=== PATIENT | male | born 1955 | race Caucasian/White ===

== ENCOUNTER → 2017-03-28 | Outpatient (CLI) | payer BC ==
[~2017-03-28] MED LIST: ALPR1TAB3 PO; ASPI81TA21 PO; FISHOIL PO; LISI40TA PO; MULTTAB58 PO; TRAZ1TAB52 PO
[2017-03-28 16:24] LABS: ALT/SGPT 28 U/L (12-78); AST/SGOT 17 U/L (15-37); BLOOD UREA NITROGEN 17 mg/dl (7-18); CALCIUM 8.9 mg/dl (8.5-10.1); CARBON DIOXIDE 26 mmol/L (21-32); CHLORIDE 100 mmol/L (98-107); CHOLESTEROL 180 mg/dl (0-200); CREATININE 0.92 mg/dl (0.60-1.40); GLUCOSE 84 mg/dl (70-99); POTASSIUM 4.2 mmol/L (3.5-5.1); SODIUM 133 mmol/L (136-145)
[2017-03-28 16:26] LABS: ALB/GLOB RATIO 1.3 (0.9-2); ALKALINE PHOSPHATASE 45 U/L (45-117); HDL CHOLESTEROL 60 mg/dl; LDL CHOLESTEROL CALCULATED 113 mg/dl; TRIGLYCERIDES 35 mg/dl (0-150); VERY LOW DENSITY LIPOPROT CALC 7 mg/dl
[2017-03-28 16:40] LABS: ESTIMATED AVERAGE GLUCOSE 105 mg/dl; HA1C FLAG Normal (Normal)
== END | disposition home or self-care (01) ==
LOC: C.LAB 15:23
PROVIDERS: ATTEND Family Medicine
DX: I10 Essential (primary) hypertension (principal); R73.01 Impaired fasting glucose; E78.5 Hyperlipidemia, unspecified

== ENCOUNTER 2022-10-26 11:20 | Observation (INO) ==
[2022-10-26] MEDS ORDERED: SODIUM CHLORIDE 0.9% 1000ML 1,000 ML IV STA (11:38)
--- NOTE | 2022-10-26 11:38 | ED Triage Note ---
Date of Service October 26, 2022 History of Present Illness This patient was briefly evaluated while in triage. An abbreviated physical exam was performed. This patient is a 66-year-old Male who presents to the ED for evaluation of leg infections. The patient is currently taking Keflex, started on 10/14. The reports that is now starting to develop a bad smell with pus. The patient has been followed by his PCP for bilateral leg cellulitis. Patient denies any known history of MRSA. Patient is currently taking hydroxyzine for the itch, and reports that he cannot sleep because of the itch. He denies any significant pain. Physical Exam CONSTITUTIONAL: Obese male in no acute distress. HEENT: No scleral icterus or conjunctival injection. NECK: Full active range of motion without discomfort. RESPIRATORY: Clear to auscultation bilaterally with no wheezing, crackles, rhonchi or stridor. CARDIOVASCULAR: Regular rate and rhythm with no murmurs, rubs or gallops. MUSCULOSKELETAL: Examination of bilateral lower extremity shows significant avril a and erythema. The patient does have dressings on both legs, and these were not removed in triage. He does have erythema above and below the bandages on both legs. HEMATOLOGIC: No ecchymosis or petechiae. PSYCHIATRIC: Positive affect. NEUROLOGIC: No focal neurologic deficits noted. Initial orders for labs and / or imaging were placed and patient was placed in the waiting area until a bed is available. Please see further documentation for the full ED course.
--- NOTE | 2022-10-26 12:35 | Emergency Department Note ---
Impression & Plan Bilateral lower leg cellulitis, Venous stasis dermatitis of both lower extremities, Morbid obesity, Localized swelling of both lower legs ED Provider Note NAME: BALBINA ODOM AGE: 66 SEX: M : 1955 ARRIVES VIA: Walk-In INFORMANT: Patient, ED PROVIDER(S): Wilson Staton MD CHIEF COMPLAINT: Leg wounds, swelling, failed antibiotic treatmnt MEDICAL DECISION MAKING: Patient presents due to concern for leg swelling, leg wounds and cellulitis. IV was established blood was obtained along with cultures. Patient has a normal white count hemoglobin and platelet count. Kidney function is unremarkable. Sodium 134. Lactate of 2.4. BSG is 176 not DKA. COVID-negative. Wound swab was obtained of the left lower extremity I did speak with the on-call hospitalist service Samira Espinal PA-C and Dr. Mejias for further management given the patient's significant leg wounds and excoriations in addition to the recent treatment for cellulitis with Keflex. Prior /Outside records reviewed: Care visit with Dr. May earlier in October at which point the patient did receive Shingrix vaccination was started on hydrochlorothiazide given leg swelling. Differential diagnosis: Cellulitis, edema, abscess, MRSA infection, DVT, necrotizing fasciitis, dermatitis, drug eruption, allergic reaction, as well as other pathologies. Diagnostics, as interpreted by me: ECG: Sinus tachycardia, rate of 104 normal UT and QRS, prolonged QT. Cardiac monitoring: An order was placed for continuous cardiac monitoring. The monitor shows a rate of 88 with sinus rhythm. Patient was placed on pulse oximetry Medical decision rules: none Imaging studies: See below HPI: Patient presents due to concern for leg wound swelling and irritation. The patient was diagnosed with cellulitis and states that this began after he bumped his right leg on a half sock at home. Patient has been on Keflex 1500 mg daily schedule to 500 3 times daily for the last 12 days but without significant improvement in symptoms. They are concerned as he has had more open wounds that have been having some foul-smelling drainage. No fevers or chills. No reported history of smoking or diabetes. Patient states he has been taking medications as prescribed. Patient denies any other symptoms. He has been trying to dress the wounds and trying to clean them gently with just running water. PAST MEDICAL HISTORY: See Below PAST SURGICAL HISTORY: See Below SOCIAL HISTORY: See Below HOME MEDICATIONS: See Below ALLERGIES: See Below VITALS: See Below PHYSICAL EXAMINATION: GENERAL: NAD, wearing a mask, non-toxic. EYE EXAM: Normal conjunctiva. PERRL, no anisocoria and EOM's grossly intact w/o pain. NECK: Supple, no nuchal rigidity, no adenopathy, non-tender. No signs of meningismus. FROM of the neck with good chin to chest and neck extension. No stridor. LUNGS: Clear to auscultation. Normal chest wall mechanics. HEART: NSR, no MRG. ABDOMEN: Abdomen soft, non-tender, no masses, no rebound or guarding. BACK: No CVA TTP. SKIN: No rashes and no bruising. UPPER EXTREMITIES: Upper extremities are grossly normal. LOWER EXTREMITIES: Significant bilateral lower extremity edema with excoriations and open wounds noted, clear drainage, no crepitus, redness but without warmth, neurovascular intact distally. NEURO EXAM: A&O x3, cranial nerves II-XII grossly intact, normal speech, moves all 4 extremities. Past Med/Surg History Medical History Cerumen impaction Chronic sinusitis Facial cellulitis Surgical History History of hip replacement Hx of hernia repair Hx of knee surgery Family History Mother Aneurysm of abdominal aorta Other No pertinent family history in first degree relatives Denies family history of Prostate cancer Myocardial infarction Breast cancer Colorectal cancer Social History Smoking Status: Never smoker Second Hand Exposure: No; Do You Dip or Chew Tobacco: No; Hx Alcohol Use: Yes Alcohol type: beer Hx Substance Use: No Preferred Language: Khmer Communication Ability: Effective Inventory Checker Required: No Beliefs That Will Affect Care: None marital status: Current Living Situation: Spouse current occupational status: employed Feels Safe at Home: Yes caffeine: Yes Dental Care, Regularly: Yes Physical Activity Frequency: 1-2 Times per Week Seatbelt Use: always Sunscreen Use: No Assistive Devices: Crutches and Walker Allergies Allergies Allergy/AdvReac Type Severity Reaction Status Date / Time No Known Allergies Allergy Unknown Verified 10/14/22 12:33 Home Meds Home Medications Medication Instructions Recorded Confirmed cholecalciferol (vitamin D3) 125 5,000 unit PO DAILY 05/13/19 10/26/22 mcg (5,000 unit) capsule garlic 1,000 mg capsule 1,000 mg PO DAILY 05/13/19 10/26/22 multivitamin (Multiple Vitamins 1 tab PO DAILY 05/13/19 10/26/22 tablet) aspirin 81 mg tablet 81 mg PO DAILY 06/18/20 10/26/22 Previous Rx's Medication Instructions Recorded simvastatin 20 mg tablet 20 mg PO QPM #90 tabs 12/24/19 hydrochlorothiazide 12.5 mg tablet 12.5 mg PO QAM #30 tabs 05/02/22 metoprolol succinate 50 mg 50 mg PO DAILY #30 tabs 06/13/22 tablet,extended release 24 hr trazodone 150 mg tablet 300 mg PO DAILY #60 tabs 09/13/22 cephalexin 500 mg capsule 500 mg PO Q8H 14 days #42 caps 10/14/22 mupirocin 2 % topical ointment 1 applic topical BID PRN 10/14/22 cellulitis #22 grams hydroxyzine HCl 25 mg tablet 25 mg PO QID PRN itching #90 tabs 10/19/22 Results & Data (ED) Vital Signs Vital Signs - 24 hr 10/26/22 11:34 10/26/22 12:35 10/26/22 13:40 Temperature 36.6 C Temperature Source Temporal Artery Scan Pulse Rate 105 H Pulse Rate [Finger] 110 H 91 H Respiratory Rate 18 18 14 Respiratory Depth Normal Blood Pressure 219/78 H Blood Pressure [Right Arm] 175/90 H 190/96 H Blood Pressure Mean 125 Blood Pressure Mean [Right Arm] 118 127 Pulse Oximetry 95 97 98 Oxygen Delivery Method Room Air Room Air Room Air Sepsis Recent Fever Within 48 Hours No Sepsis New/Unexplained Change in Mental Status No Sepsis Action Taken by Nursing No Action Required Home Medications Current Medication List: was personally reviewed by me Laboratory Data Attestation: I reviewed the patient's lab results. 10/26/22 11:45 10/26/22 11:45 Lab Results 10/26/22 10/26/22 10/26/22 Range/Units 11:45 11:45 11:45 WBC 9.83 (4.8-10.8) K/ul RBC 4.67 L (4.70-6.10) M/uL Hgb 14.2 (14.0-18.0) g/dl Hct 41.4 L (42.0-52.0) % MCV 88.7 (80.0-100.0) fL MCH 30.4 (25.0-34.0) pg MCHC 34.3 (32.0-36.0) g/dL RDW Std Deviation 42.4 (36.4-46.3) fL RDW Coeff of Carmen 13.1 (11.5-14.5) % Plt Count 239 (130-400) K/uL MPV 8.8 L (9.4-12.4) fL Immature Gran % (Auto) 0.8 % Neut % (Auto) 82.4 % Lymph % (Auto) 10.7 % [place] % (Auto) 5.3 % Eos % (Auto) 0.6 % Baso % (Auto) 0.2 % Neut # (Auto) 8.10 H (1.40-6.50) K/uL Lymph # (Auto) 1.05 L (1.2-3.4) K/uL [place] # (Auto) 0.52 (0.11-0.59) K/uL Eos # (Auto) 0.06 (0-0.50) K/uL Baso # (Auto) 0.02 (0-0.2) K/uL Immature Gran # (Auto) 0.08 (0.01-0.20) K/uL ESR 46 H (0-20) mm/hr PT 10.6 (9.0-12.0) Seconds INR 1.0 (0.9-1.1) Sodium (136-145) mmol/L Potassium (3.5-5.1) mmol/L Chloride (98-107) mmol/L Carbon Dioxide (21-32) mmol/L Anion Gap (3-11) BUN (6-23) mg/dl Creatinine (0.6-1.4) mg/dl Est Cr Clr Drug Dosing ml/min Est GFR ( Amer) ml/min Est GFR (Non-Af Amer) ml/min BUN/Creatinine Ratio (10-20) Glucose (70-99(Fasting)) mg/dl Lactate (0.4-2.0) mmol/L Calcium (8.6-10.3) mg/dl Total Bilirubin (0.2-1.0) mg/dl AST (13-39) U/L ALT (7-52) U/L Alkaline Phosphatase (34-104) U/L Troponin I High Sens (0-20) pg/ml Total Protein (6.0-8.3) gm/dl Albumin (3.4-5.0) gm/dl Globulin (2.5-4.0) gm/dl Albumin/Globulin Ratio (0.9-2) Procalcitonin (0-0.5) ng/ml SARS-CoV-2, RNA, NAAT (NEGATIVE) 10/26/22 10/26/22 10/26/22 Range/Units 11:45 11:45 11:45 WBC (4.8-10.8) K/ul RBC (4.70-6.10) M/uL Hgb (14.0-18.0) g/dl Hct (42.0-52.0) % MCV (80.0-100.0) fL MCH (25.0-34.0) pg MCHC (32.0-36.0) g/dL RDW Std Deviation (36.4-46.3) fL RDW Coeff of Carmen (11.5-14.5) % Plt Count (130-400) K/uL MPV (9.4-12.4) fL Immature Gran % (Auto) % Neut % (Auto) % Lymph % (Auto) % [place] % (Auto) % Eos % (Auto) % Baso % (Auto) % Neut # (Auto) (1.40-6.50) K/uL Lymph # (Auto) (1.2-3.4) K/uL [place] # (Auto) (0.11-0.59) K/uL Eos # (Auto) (0-0.50) K/uL Baso # (Auto) (0-0.2) K/uL Immature Gran # (Auto) (0.01-0.20) K/uL ESR (0-20) mm/hr PT (9.0-12.0) Seconds INR (0.9-1.1) Sodium 134 L (136-145) mmol/L Potassium 3.8 (3.5-5.1) mmol/L Chloride 97 L (98-107) mmol/L Carbon Dioxide 27 (21-32) mmol/L Anion Gap 10 (3-11) BUN 16 (6-23) mg/dl Creatinine 1.12 (0.6-1.4) mg/dl Est Cr Clr Drug Dosing 101.7 ml/min Est GFR ( Amer) 80.0 ml/min Est GFR (Non-Af Amer) 69.0 ml/min BUN/Creatinine Ratio 14.3 (10-20) Glucose 176 H (70-99(Fasting)) mg/dl Lactate (0.4-2.0) mmol/L Calcium 9.2 (8.6-10.3) mg/dl Total Bilirubin 0.5 (0.2-1.0) mg/dl AST 24 (13-39) U/L ALT 30 (7-52) U/L Alkaline Phosphatase 58 (34-104) U/L Troponin I High Sens 9.3 (0-20) pg/ml Total Protein 7.2 (6.0-8.3) gm/dl Albumin 3.9 (3.4-5.0) gm/dl Globulin 3.3 (2.5-4.0) gm/dl Albumin/Globulin Ratio 1.2 (0.9-2) Procalcitonin < 0.05 (0-0.5) ng/ml SARS-CoV-2, RNA, NAAT NEGATIVE (NEGATIVE) 10/26/22 Range/Units 13:09 WBC (4.8-10.8) K/ul RBC (4.70-6.10) M/uL Hgb (14.0-18.0) g/dl Hct (42.0-52.0) % MCV (80.0-100.0) fL MCH (25.0-34.0) pg MCHC (32.0-36.0) g/dL RDW Std Deviation (36.4-46.3) fL RDW Coeff of Carmen (11.5-14.5) % Plt Count (130-400) K/uL MPV (9.4-12.4) fL Immature Gran % (Auto) % Neut % (Auto) % Lymph % (Auto) % [place] % (Auto) % Eos % (Auto) % Baso % (Auto) % Neut # (Auto) (1.40-6.50) K/uL Lymph # (Auto) (1.2-3.4) K/uL [place] # (Auto) (0.11-0.59) K/uL Eos # (Auto) (0-0.50) K/uL Baso # (Auto) (0-0.2) K/uL Immature Gran # (Auto) (0.01-0.20) K/uL ESR (0-20) mm/hr PT (9.0-12.0) Seconds INR (0.9-1.1) Sodium (136-145) mmol/L Potassium (3.5-5.1) mmol/L Chloride (98-107) mmol/L Carbon Dioxide (21-32) mmol/L Anion Gap (3-11) BUN (6-23) mg/dl Creatinine (0.6-1.4) mg/dl Est Cr Clr Drug Dosing ml/min Est GFR ( Amer) ml/min Est GFR (Non-Af Amer) ml/min BUN/Creatinine Ratio (10-20) Glucose (70-99(Fasting)) mg/dl Lactate 2.4 H* (0.4-2.0) mmol/L Calcium (8.6-10.3) mg/dl Total Bilirubin (0.2-1.0) mg/dl AST (13-39) U/L ALT (7-52) U/L Alkaline Phosphatase (34-104) U/L Troponin I High Sens (0-20) pg/ml Total Protein (6.0-8.3) gm/dl Albumin (3.4-5.0) gm/dl Globulin (2.5-4.0) gm/dl Albumin/Globulin Ratio (0.9-2) Procalcitonin (0-0.5) ng/ml SARS-CoV-2, RNA, NAAT (NEGATIVE) Administered Medications Aspirin (Aspirin 81 Mg Ectab) 81 mg PO DAILY MARIIA Stop: 11/26/22 08:59 Last Admin: 10/28/22 08:28 Dose: 81 mg Documented By: Admin: 10/27/22 09:06 Dose: 81 mg Documented By: OSBALDO Enoxaparin Sodium (Enoxaparin Inj 40 Mg/0.4 Ml Syr) 40 mg SQ Q12H MARIIA Stop: 11/25/22 18:29 Last Admin: 10/28/22 05:53 Dose: 40 mg Documented By: Admin: 10/27/22 17:41 Dose: 40 mg Documented By: Admin: 10/27/22 05:48 Dose: 40 mg Documented By: Admin: 10/26/22 19:18 Dose: 40 mg Documented By: JEFFREY Hydroxyzine HCl (Hydroxyzine Hcl 25 Mg Tab) 50 mg PO Q8H PRN PRN Reason: Anxiety Stop: 11/25/22 19:44 Last Admin: 10/27/22 16:06 Dose: 50 mg Documented By: OSBALDO Daptomycin 425 mg/ Syringe 8.5 mls @ 4.25 mls/min IV Q24H MARIIA; Protocol Stop: 11/02/22 15:14 Last Admin: 10/27/22 14:53 Dose: 4.25 mls/min Documented By: Admin: 10/26/22 16:33 Dose: 4.25 mls/min Documented By: GLORY Ceftriaxone Sodium 2,000 mg/ (Dextrose) 70 mls @ 100 mls/hr IV Q24H MARIIA; Protocol Stop: 11/02/22 14:59 Last Infusion: 10/27/22 15:38 Dose: 0 mls/hr Documented By: Admin: 10/27/22 14:58 Dose: 100 mls/hr Documented By: Infusion: 10/26/22 16:17 Dose: 0 mls/hr Documented By: Admin: 10/26/22 15:31 Dose: 100 mls/hr Documented By: NYA Metoprolol Succinate (Metoprolol Succ 50mg Ext Rel Tab) 50 mg PO DAILY MARIIA Stop: 11/26/22 08:59 Last Admin: 10/28/22 08:28 Dose: 50 mg Documented By: Admin: 10/27/22 09:06 Dose: 50 mg Documented By: OSBALDO Oxycodone HCl (Oxycodone Hcl Ir 5 Mg Tab (Immediate Release)) 10 mg PO Q6H PRN PRN Reason: Moderate Pain 4-6/10 Stop: 11/10/22 16:26 Last Admin: 10/27/22 22:21 Dose: 10 mg Documented By: Admin: 10/27/22 16:58 Dose: 10 mg Documented By: OSBALDO Trazodone HCl (Trazodone Hcl 100 Mg Tab) 300 mg PO HS MARIIA Stop: 11/25/22 20:59 Last Admin: 10/27/22 22:22 Dose: 300 mg Documented By: Admin: 10/26/22 23:06 Dose: 300 mg Documented By: JEFFREY Discontinued Medications Acetaminophen (Acetaminophen 325 Mg Tab) 650 mg PO Q4H PRN PRN Reason: pain/fever Stop: 11/25/22 18:07 Last Admin: 10/27/22 16:07 Dose: 650 mg Documented By: OSBALDO Furosemide (Furosemide Inj 20 Mg/2 Ml Vial) 20 mg IV ONE ONE Stop: 10/26/22 14:48 Last Admin: 10/26/22 15:28 Dose: 20 mg Documented By: GLORY Gabapentin (Gabapentin 300 Mg Cap) 300 mg PO 2000 ONE Stop: 10/27/22 20:01 Last Admin: 10/27/22 19:46 Dose: 300 mg Documented By: JEFFREY Hydroxyzine HCl (Hydroxyzine Hcl 25 Mg Tab) 25 mg PO Q8H PRN PRN Reason: Anxiety Stop: 11/25/22 19:44 Last Admin: 10/26/22 22:12 Dose: 25 mg Documented By: JEFFREY Sodium Chloride (Nss 1000ml) 1,000 mls @ 999 mls/hr IV .Q1H1M STA Stop: 10/26/22 12:38 Last Infusion: 10/26/22 16:28 Dose: 0 mls/hr Documented By: Admin: 10/26/22 12:33 Dose: 999 mls/hr Documented By: NKECHI Ceftriaxone Sodium (Rocephin) 2,000 mg in 70 mls @ 140 mls/hr IV NOW STA Stop: 10/26/22 15:15 Last Admin: 10/26/22 18:09 Dose: Not Given Documented By: JUANY Lorazepam (Lorazepam 2 Mg/1 Ml Vial) 0.5 mg IV NOW STA Stop: 10/26/22 23:12 Last Admin: 10/26/22 23:19 Dose: 0.5 mg Documented By: JEFFREY Discharge Plan Visit Data Chief Complaint: Wound Stated Complaint: CELLULITIS, REF BY ED Provider: Wilson Staton Discharge Problem: Bilateral lower leg cellulitis, Venous stasis dermatitis of both lower extremities, Morbid obesity, Localized swelling of both lower legs Patient Disposition: Admitted As Inpatient Discharge Instructions Interventions: ED Discharge Assessment Last Done: 10/26/22 17:26
[2022-10-26 13:11] LABS: Basophils # (auto) 0.02 K/uL (0-0.2); Basophils % (auto) 0.2 %; Eosinophils # (auto) 0.06 K/uL (0-0.50); Eosinophils % (auto) 0.6 %; Hematocrit (blood only) 41.4 % (42.0-52.0); Hemoglobin 14.2 g/dl (14.0-18.0); Immature Granulocytes # (auto) 0.08 K/uL (0.01-0.20); Immature Granulocytes % (auto) 0.8 %; Lymphocytes # (auto) 1.05 K/uL (1.2-3.4); Lymphocytes % (auto) 10.7 %; Mean Corpuscular Hemoglobin 30.4 pg (25.0-34.0); Mean Corpuscular Hgb Conc 34.3 g/dL (32.0-36.0); Mean Corpuscular Volume 88.7 fL (80.0-100.0); Mean Platelet Volume 8.8 fL (9.4-12.4); Monocytes # (auto) 0.52 K/uL (0.11-0.59); Monocytes % (auto) 5.3 %; Neutrophils % (auto) 82.4 %; Platelet Count 239 K/uL (130-400); RDW Coefficient of Variation 13.1 % (11.5-14.5); RDW Standard Deviation 42.4 fL (36.4-46.3); Red Blood Count 4.67 M/uL (4.70-6.10); White Blood Count 9.83 K/ul (4.8-10.8)
[2022-10-26 13:29] LABS: Albumin Globulin Ratio 1.2 (0.9-2); Albumin Level 3.9 gm/dl (3.4-5.0); BUN Creatinine Ratio 14.3 (10-20); Bilirubin,Total 0.5 mg/dl (0.2-1.0); Calcium 9.2 mg/dl (8.6-10.3); Creatinine Clr Calc Pharmacy 101.7 ml/min; Globulin 3.3 gm/dl (2.5-4.0); Potassium 3.8 mmol/L (3.5-5.1); Total Protein 7.2 gm/dl (6.0-8.3)
[2022-10-26 13:35] LABS: Troponin I High Sensitivity 9.3 pg/ml (0-20)
[2022-10-26 13:43] LABS: Prothrombin Time 10.6 Seconds (9.0-12.0)
--- NOTE | 2022-10-26 14:08 | History & Physical Report ---
Date of Service October 26, 2022 Assessment & Plan (1) Bilateral lower leg cellulitis: Plan: - IV Ceftriaxone 2gm - IV Daptomycin - Check nasal MRSA - Await wound culture - Await blood culture (2) Venous stasis dermatitis of both lower extremities: Plan: - Elevate extremities - Diurese with IV LAsix - check venous doppler - Will also get echo (never had echo) - Heart healthy low sodium diet - Await HgbA1C - po Bendryl as needed for puritis skin (3) Hyperlipidemia: Plan: - Chronic - Hold home simvastatin (interaction with Daptomycin) (4) HTN (hypertension): Plan: Chronic stable continue Metoprolol held HCTZ (gave lasix for diuresis) (5) Morbid obesity: Plan: Discussed diet, exercise and weight loss History of Present Illness Chief Complaint: bilateral leg infections Primary Care Provider: Berta May MD Mitchell Perry is a 66 year old male with past medical history of HTN, Hyperlipidemia, BPH with nocturia, morbid obesity who presented to the ER with complaints of lower leg infection and swelling x 2 weeks. Patient states that over 2 weeks ago he hit his right juarez on a table and suffered an abrasion that became infected. He went to see his PCP and was rx Keflex. He took the keflex for the past 12 days with worsening redness, warmth and swelling on the lower legs. He has been trying to keep dressings over the lower legs but has had drainage and oozing of the extremities and per the patient and his the lower legs are now purulent and malodorous. He denies any congestion, cough, fever, chills, chest pain, SOB. Patient denies ever having skin infections or MRSA in the past. Allergies Allergy/AdvReac Type Severity Reaction Status Date / Time No Known Allergies Allergy Unknown Verified 10/14/22 12:33 Home Medications Medication Instructions Recorded Confirmed Type cholecalciferol (vitamin D3) 125 5,000 unit PO DAILY 05/13/19 10/26/22 History mcg (5,000 unit) capsule garlic 1,000 mg capsule 1,000 mg PO DAILY 05/13/19 10/26/22 History multivitamin (Multiple Vitamins 1 tab PO DAILY 05/13/19 10/26/22 History tablet) simvastatin 20 mg tablet 20 mg PO QPM #90 tabs 12/24/19 10/26/22 Rx aspirin 81 mg tablet 81 mg PO DAILY 06/18/20 10/26/22 History hydrochlorothiazide 12.5 mg tablet 12.5 mg PO QAM #30 tabs 05/02/22 10/26/22 Rx metoprolol succinate 50 mg 50 mg PO DAILY #30 tabs 06/13/22 10/26/22 Rx tablet,extended release 24 hr trazodone 150 mg tablet 300 mg PO DAILY #60 tabs 09/13/22 10/26/22 Rx cephalexin 500 mg capsule 500 mg PO Q8H 14 days #42 caps 10/14/22 10/26/22 Rx mupirocin 2 % topical ointment 1 applic topical BID PRN 10/14/22 10/26/22 Rx cellulitis #22 grams hydroxyzine HCl 25 mg tablet 25 mg PO QID PRN itching #90 tabs 10/19/22 10/26/22 Rx Past Med/Surg History Medical History Cerumen impaction Chronic sinusitis Facial cellulitis Surgical History History of hip replacement Hx of hernia repair Hx of knee surgery Family History Mother Aneurysm of abdominal aorta Other No pertinent family history in first degree relatives Denies family history of Prostate cancer Myocardial infarction Breast cancer Colorectal cancer Social History Smoking Status: Never smoker Second Hand Exposure: No; Do You Dip or Chew Tobacco: No; Hx Alcohol Use: Yes Alcohol type: beer Hx Substance Use: No Preferred Language: Nigerien Communication Ability: Effective Beliefs That Will Affect Care: None marital status: Current Living Situation: Spouse current occupational status: employed Feels Safe at Home: Yes caffeine: Yes Dental Care, Regularly: Yes Physical Activity Frequency: 1-2 Times per Week Seatbelt Use: always Sunscreen Use: No Assistive Devices: None Review of Systems Constitutional: + fatigue; no fever and no chills Respiratory: no cough, no chest congestion, no dyspnea and no wheezing Cardiovascular: + edema; no chest pain and no dyspnea Gastrointestinal: no abdominal pain, no nausea and no vomiting Genitourinary: + nocturia; no dysuria, no urinary frequency, no urinary hesitancy or no hematuria Psychiatric: + anxiety; no irritability, no confusion and no substance abuse Physical Exam Constitutional: + morbidly obese; no acute distress Neck: trachea midline, no thyromegaly Respiratory: normal respiratory effort, lungs clear to auscultation Cardiovascular: Rate/Rhythm: regular rate and regular rhythm Heart Sounds: normal S1 and normal S2; no murmur Extremities: + edema Gastrointestinal (Abdomen): normal bowel sounds, soft, nontender, no hepatosplenomegaly Skin: bilateral lower legs swollen with open areas with purulent drainage, area above appeared dry/ichthyosis, smegma noted on posterior right calf and left anterior juarez Psychiatric: A+Ox3, euthymic affect Results & Data Results & Data Vital Signs (Past 12 Hours) Vital Signs Temp Pulse Pulse Resp BP BP Pulse Ox 10/26/22 13:40 91 H 14 190/96 H 98 10/26/22 12:35 110 H 18 175/90 H 97 10/26/22 11:34 36.6 C 105 H 18 219/78 H 95 O2 Del Method 10/26/22 13:40 Room Air 10/26/22 12:35 Room Air 10/26/22 11:34 Room Air Laboratory Results Abnormal lab results 10/26/22 10/26/22 10/26/22 Range/Units 11:45 11:45 11:45 RBC 4.67 L (4.70-6.10) M/uL Hct 41.4 L (42.0-52.0) % MPV 8.8 L (9.4-12.4) fL Neut # (Auto) 8.10 H (1.40-6.50) K/uL Lymph # (Auto) 1.05 L (1.2-3.4) K/uL ESR 46 H (0-20) mm/hr Sodium 134 L (136-145) mmol/L Chloride 97 L (98-107) mmol/L Glucose 176 H (70-99(Fasting)) mg/dl Lactate (0.4-2.0) mmol/L 10/26/22 Range/Units 13:09 RBC (4.70-6.10) M/uL Hct (42.0-52.0) % MPV (9.4-12.4) fL Neut # (Auto) (1.40-6.50) K/uL Lymph # (Auto) (1.2-3.4) K/uL ESR (0-20) mm/hr Sodium (136-145) mmol/L Chloride (98-107) mmol/L Glucose (70-99(Fasting)) mg/dl Lactate 2.4 H* (0.4-2.0) mmol/L Supervising Physician Co-Signing Physician Notes Patient seen and examined, chart reviewed, case discussed with richard Cronin PA-C and I agree with the assessment and plan as above except as otherwise noted Labs and images reviewed Mitchell is a pleasant 66-year-old male with a past medical history of venous stasis dermatitis, hyperlipidemia, BPH, and hypertension without a history of heart failure who presents for chronic lower extremity swelling over 2 weeks without any chest pain, chest pressure, shortness of breath, or orthopnea. He reports that he is relatively sedentary, swelling has progressively increased but in the last 2 weeks after having an abrasion to the right leg has had increased oozing and white discharge from the right leg which is also now spread to the left leg. Does not have history of prior skin infections in the past. He has not had fever, chills, sweats. On exam has bilateral chronic venous stasis change with scaling, anterior juarez erosions on both the right and left leg which are slightly warm and erythematous, more than baseline per patient. Symmetrical appearance is more concerning for venous stasis, given discharge and increase in warmth/redness reasonable to follow cultures and treat with empiric Rocephin/Dapto coverage pending progression. No signs of pulmonary edema, high- sensitivity troponin is negative. Creatinine is at baseline. Dopplers and echo are pending to rule out blood clot and underlying CHF as cause, suspect chronic venous stasis based on appearance. Recommend elevation of legs at least 3 times daily for 20 minutes/day, and may combine stasis precautions with leg wraps with Lasix. Reasonable to treat with 5-day course of Rocephin/cefdinir if patient has significant improvement with this, although failure to improve on Keflex with bilateral symmetrical appearance with normal Pro-Roque and no leukocytosis m akes infection less likely. Agree with assessment and management and further work-up as above PG Care Time/CCT Total # of Minutes Spent Total Time Spent with Patient: Total time spent is greater than 50% in coordination of care (as documented) at patient's floor/unit and/or counseling patient: Coding Level of Care Code 72147 INT INP/OBS CARE 1/40MIN Diagnoses Bilateral lower leg cellulitis L03.116; L03.115 Venous stasis dermatitis of both lower extremities I87.2 Hyperlipidemia E78.5 HTN (hypertension) I10 Morbid obesity E66.01
[2022-10-26] MEDS ORDERED: cefTRIAXone SODIUM 2,000 MG/70 ML BAG IV STA (14:46)
[2022-10-26] MEDS ORDERED: FUROSEMIDE INJ 20 MG/2 ML VIAL IV ONE (14:47)
[2022-10-26] MEDS: cefTRIAXone SODIUM 2,000 MG in DEXTROSE 5% 50 ML IV SCH (15:31)
--- NOTE | 2022-10-26 16:04 | Electrocardiogram Report ---
Test Reason : Blood Pressure : / mmHG Vent. Rate : 104 BPM Atrial Rate : 104 BPM P-R Int : 186 ms QRS Dur : 098 ms QT Int : 358 ms P-R-T Axes : 061 009 046 degrees QTc Int : 470 ms Sinus tachycardia Otherwise normal ECG When compared with ECG of 13-MAY-2019 19:32, Vent. rate has increased BY 34 BPM QT has lengthened Confirmed by Rigo Aly ([id number]) on 10/26/2022 4:04:09 PM Referred By: Xavier Altamirano Confirmed By:Rigo Aly
[2022-10-26] MEDS: DAPTOmycin 425 MG in SYRINGE 0 ML IV SCH (16:33)
--- NOTE | 2022-10-26 16:42 | Ultrasound Report ---
BILATERAL LOWER EXTREMITY VENOUS DOPPLER CLINICAL HISTORY: Lower extremity edema. COMPARISON STUDY: Right lower extremity venous Doppler ultrasound January 02, 2006. TECHNIQUE: Sonography of the deep venous system of the bilateral lower extremities was performed. Co mpression and augmentation were evaluated. FINDINGS: This exam was significantly compromised by suboptimal penetration. Lower extremity edema i s noted. The bilateral common femoral, superficial femoral and popliteal veins were compressible. Aug mentation was normal. Flow was shown within the deep calf vessels. IMPRESSION: Exam significantly compromised from a technical standpoint. However, no deep venous throm bus visualized within the bilateral lower extremities. ACT 112: Negative or not required by law. Electronically signed by: Kevin Magana M.D. 10/26/2022 4:40 PM
[2022-10-26] MEDS ORDERED: diphenhydrAMINE Capsule 25 MG CAP PO PRN (18:08)
[2022-10-26] MEDS ORDERED: POLYETHYLENE (MIRALAX) 17 GM PACK PO PRN (18:08)
[2022-10-26] MEDS ORDERED: ACETAMINOPHEN 325 MG TAB PO PRN (18:08)
[2022-10-26] MEDS: ENOXAPARIN INJ 40 MG/0.4 ML SYR SQ SCH (19:18)
[2022-10-26] MEDS ORDERED: hydrOXYzine HCl 25 MG TAB PO PRN (19:45)
[2022-10-26] MEDS: traZODone HCL 100 MG TAB PO SCH (23:06)
[2022-10-26] MEDS ORDERED: LORazepam 2 MG/1 ML VIAL IV STA (23:11)
[2022-10-27] MEDS: ENOXAPARIN INJ 40 MG/0.4 ML SYR SQ SCH ×2 (05:48→17:41)
[2022-10-27 08:57] LABS: Basophils # (auto) 0.03 K/uL (0-0.2); Basophils % (auto) 0.3 %; Eosinophils # (auto) 0.23 K/uL (0-0.50); Eosinophils % (auto) 2.4 %; Hematocrit (blood only) 38.3 % (42.0-52.0); Hemoglobin 13.3 g/dl (14.0-18.0); Immature Granulocytes # (auto) 0.06 K/uL (0.01-0.20); Immature Granulocytes % (auto) 0.6 %; Lymphocytes # (auto) 1.46 K/uL (1.2-3.4); Lymphocytes % (auto) 15.3 %; Mean Corpuscular Hemoglobin 30.9 pg (25.0-34.0); Mean Corpuscular Hgb Conc 34.7 g/dL (32.0-36.0); Mean Corpuscular Volume 88.9 fL (80.0-100.0); Mean Platelet Volume 9.1 fL (9.4-12.4); Monocytes # (auto) 0.62 K/uL (0.11-0.59); Monocytes % (auto) 6.5 %; Neutrophils # (auto) 7.13 K/uL (1.40-6.50); Neutrophils % (auto) 74.9 %; Platelet Count 236 K/uL (130-400); RDW Coefficient of Variation 13.2 % (11.5-14.5); RDW Standard Deviation 42.7 fL (36.4-46.3); Red Blood Count 4.31 M/uL (4.70-6.10); White Blood Count 9.53 K/ul (4.8-10.8)
[2022-10-27] MEDS ORDERED: traZODone HCL 100 MG TAB PO SCH (09:00)
[2022-10-27] MEDS: ASPIRIN 81 MG ECTAB PO SCH (09:06)
[2022-10-27] MEDS: METOPROLOL SUCC 50MG EXT REL TAB PO SCH (09:06)
[2022-10-27 09:09] LABS: BUN Creatinine Ratio 12.6 (10-20); Est GFR (African American) 88.6 ml/min; Est GFR (Non-African American) 76.4 ml/min; Potassium 3.7 mmol/L (3.5-5.1)
--- NOTE | 2022-10-27 09:37 | Hospitalist Progress Note ---
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, 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 -We will try gabapentin for pruritic changes to lower extremities continue with hydroxyzine as needed (3) Hyperlipidemia: Plan: - Chronic stable - Hold home simvastatin (interaction with Daptomycin) (4) HTN (hypertension): Plan: Chronic stable continue Metoprolol held HCTZ (gave lasix for diuresis) (5) Morbid obesity: Plan: Discussed diet, exercise and weight loss and its effect on his diabetic care in the future Admission and Anticipated Discharge Date Admission Date: October 26, 2022 Subjective Patient notices some improvements of the lower legs Increasing pain with wound care required both parenteral and oral opiate therapy Discussed his A1c and implications for diabetes in this patient who has a BMI of 52. Also discussed implications and lower extremity infections and neuropathy Physical Exam Physical Exam: Patient awake alert appropriate Lower extremities have bilateral venous stasis changes and marked scaling of skin with some open cracked areas. Reported receding of erythema which is still mildly present Gross motor and sensory function is intact Results & Data Results & Data Vital Signs (Past 12 Hours) Vital Signs Temp Pulse Resp BP Pulse Ox O2 Del Method 10/27/22 07:10 98.1 F 88 18 128/77 97 Room Air Laboratory Results Reviewed CBC Reviewed PRP Diagnostic Findings Venous Doppler studies were unrevealing for DVT PG Care Time/CCT Total # of Minutes Spent Total Time Spent with Patient: Total time spent is greater than 50% in coordination of care (as documented) at patient's floor/unit and/or counseling patient: Coding Level of Care Code 87642 SUB INP/OBS CARE 3/50MIN Diagnoses Bilateral lower leg cellulitis L03.116; L03.115 Venous stasis dermatitis of both lower extremities I87.2 Hyperlipidemia E78.5 HTN (hypertension) I10 Morbid obesity E66.01
[2022-10-27 10:32] LABS: Estimated Average Glucose 146 mg/dl; Hemoglobin A1C 6.7 % (4.5-5.6)
[2022-10-27] MEDS ORDERED: hydrOXYzine HCl 25 MG TAB PO PRN (14:00)
[2022-10-27] MEDS: DAPTOmycin 425 MG in SYRINGE 0 ML IV SCH (14:53)
[2022-10-27] MEDS: cefTRIAXone SODIUM 2,000 MG in DEXTROSE 5% 50 ML IV SCH (14:58)
[2022-10-27] MEDS ORDERED: MoRPHine SULFATE 2 MG/ML CARP IV PRN (16:27)
[2022-10-27] MEDS ORDERED: ACETAMINOPHEN 500 MG TAB PO PRN (16:28)
[2022-10-27] MEDS: oxyCODONE HCL IR 5 MG TAB (IMMEDIATE RELEASE) PO PRN ×2 (16:58→22:21)
--- NOTE | 2022-10-27 17:14 | XCELERA ---
[id number]
[2022-10-27] MEDS ORDERED: GABAPENTIN 300 MG CAP PO ONE (20:00)
[2022-10-27] MEDS: traZODone HCL 100 MG TAB PO SCH (22:22)
[2022-10-28] MEDS: ENOXAPARIN INJ 40 MG/0.4 ML SYR SQ SCH (05:53)
[2022-10-28] MEDS: ASPIRIN 81 MG ECTAB PO SCH (08:28)
[2022-10-28] MEDS: METOPROLOL SUCC 50MG EXT REL TAB PO SCH (08:28)
[2022-10-28] MEDS ORDERED: AMMONIUM LACTATE 12% LOTION 225 GM BTL EXT ONE (10:57)
[2022-10-28] MEDS ORDERED: CIPROFLOXACIN 500 MG TAB PO SCH (13:00)
--- NOTE | 2022-10-28 17:06 | Discharge Summary ---
Date of Service October 28, 2022 Admission HPI Per Admitting Provider Mitchell Perry is a 66 year old male with past medical history of HTN, Hyperlipidemia, BPH with nocturia, morbid obesity who presented to the ER with complaints of lower leg infection and swelling x 2 weeks. Patient states that over 2 weeks ago he hit his right juarez on a table and suffered an abrasion that became infected. He went to see his PCP and was rx Keflex. He took the keflex for the past 12 days with worsening redness, warmth and swelling on the lower legs. He has been trying to keep dressings over the lower legs but has had drainage and oozing of the extremities and per the patient and his the michael ownicole legs are now purulent and malodorous. He denies any congestion, cough, fever, chills, chest pain, SOB. Patient denies ever having skin infections or MRSA in the past. Principal Diagnosis Lower extremity cellulitis with culture positive for Enterobacter and Klebsiella pansensitive for both New diagnosis of diabetes with an A1c of 6.7 Morbid obesity chronic venous stasis changes of lower extremities Discharge Exam Patient is Tubigrip wraps on his lower extremities planning to see wound care as an outpatient we will continue his AmLactin cream and wash his lower extremities daily completing a course of outpatient antibiotics Discharge Data Allergies Allergy/AdvReac Type Severity Reaction Status Date / Time No Known Allergies Allergy Unknown Verified 10/14/22 12:33 Consultations 10/26/22 14:22 ED Decision to Admit Stat Ordered Studies Venous Doppler Study 10/26/22 15:21 BILATERAL LOWER EXTREMITY VENOUS DOPPLER CLINICAL HISTORY: Lower extremity edema. COMPARISON STUDY: Right lower extremity venous Doppler ultrasound January 02, 2006. TECHNIQUE: Sonography of the deep venous system of the bilateral lower extremities was performed. Compression and augmentation were evaluated. FINDINGS: This exam was significantly compromised by suboptimal penetration. Lower extremity edema is noted. The bilateral common femoral, superficial femoral and popliteal veins were compressible. Augmentation was normal. Flow was shown within the deep calf vessels. IMPRESSION: Exam significantly compromised from a technical standpoint. However, no deep venous thrombus visualized within the bilateral lower extremities. ACT 112: Negative or not required by law. Electronically signed by: Kevin Magana M.D. 10/26/2022 4:40 PM Diabetes Follow up Diabetes Follow-up Needed for Newly Diagnosed Diabetes Hospital Course (1) Bilateral lower leg cellulitis: Acute associate with diabetes- - Wound cultures show Enterobacter and Klebsiella pansensitive will be discharged on Cipro therapy twice daily for 10 days Recommend low-salt diet elevation of lower legs wash daily with dressing changes and will see him care clinic in approximately 5 days (2) Venous stasis dermatitis of both lower extremities: - Acute on chronicelevate extremities Venous Doppler unremarkable for DVT patient resume hydrochlorothiazide as an outpatient follow-up with wound care primary care physician - -Elevated HgbA1C to 6.7 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, 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 in lower extremity discomfort after 1 dose of gabapentin at bedtime will prescribe the same fearing this may be diabetic neuropathy from untreated diabetes (3) Hyperlipidemia: - Chronic stable -Continue home simvastatin (4) HTN (hypertension): Chronic stable continue MetoprololHCTZ (5) Morbid obesity: Discussed diet, exercise and weight loss and its effect on his diabetic care in the future Total Time Total Time Spent Total Time Spent (In Minutes): It required greater than 30 minutes to prepare this patient for discharge Discharge Plan Discharge Items Patient Disposition: Home - Self-Care Reason For Visit: CELLULITIS Discharge Diagnosis: lower extremity swelling lower extremity cellulitis new diagnosis of diabetes Activity: Resume your previous activity Non-emergency contact: Primary Care Provider Call non-emergency contact if: your symptoms worsen Follow-up/Referrals: Berta May MD [Primary Care Provider] - 11/01/22 11:30 am Diet: Carb Consistent or DM2 and Low Sodium (2gm) Addtl Attending Provider Instructions: elevate legs as much as able wash legs daily with soap and water, dry completely, apply amlac cream to non open areas, attention to areas of extra skin or thickness, then cover with clean dry wrap. open or draining areas cover with medicated bandage before wrapping follow up with wound care clinic for diabetes please follow up with Diabetic care management, start wtih diet changes and once legs improve start modest exercise Pending Studies at Discharge: No Stand-Alone Forms: My [facility], Smoking Cessation Medications and DC Order Prescriptions: New ciprofloxacin HCl [Cipro] 500 mg tablet 500 mg PO BID Qty: 20 0RF gabapentin 300 mg capsule 300 mg PO HS Qty: 30 0RF Continued simvastatin 20 mg tablet 20 mg PO QPM Qty: 90 3RF hydrochlorothiazide 12.5 mg tablet 12.5 mg PO QAM Qty: 30 5RF metoprolol succinate 50 mg tablet extended release 24 hr 50 mg PO DAILY Qty: 30 3RF trazodone 150 mg tablet 300 mg PO DAILY Qty: 60 2RF hydroxyzine HCl 25 mg tablet 25 mg PO QID PRN (Reason: itching) Qty: 90 3RF mupirocin 2 % ointment 1 applic topical BID PRN (Reason: cellulitis) Qty: 22 5RF cholecalciferol (vitamin D3) 5,000 unit Capsule 5,000 unit PO DAILY garlic 1,000 mg Capsule 1,000 mg PO DAILY multivitamin [Multiple Vitamins] Tablet 1 tab PO DAILY aspirin 81 mg Tablet 81 mg PO DAILY Discontinued cephalexin 500 mg capsule 500 mg PO Q8H 14 Days Qty: 42 0RF Discharge Orders: Discharge Order (Routine); Ordered 10/28/22 Ordered By: German Young/Other Patient Handouts: Exercise: Why Fitness Matters, Diabetes: Meal Planning, Type 2 Diabetes Admission Data Admit Date/Time: 10/26/22 15:06 Attending Provider: German Ojeda Admit Provider: Steve Mejias Primary Care Provider: Berta May Other Providers: Steve Mejias Other Interventions: Discharge Summary Assessment (RN) Last Done: 10/28/22 14:16 Coding Level of Care Code 32383 INP/OBS DISCH >30 MIN Diagnoses Bilateral lower leg cellulitis L03.116; L03.115 Venous stasis dermatitis of both lower extremities I87.2 Hyperlipidemia E78.5 HTN (hypertension) I10 Morbid obesity E66.01
== END 2022-10-28 14:46 | disposition home or self-care (01) ==
LOC: 3N 11:20 → ED 11:20 → SUATTDRO 15:06 → 3N 17:26